=== PATIENT | female | born 1975 | race Hispanic/Latino ===

== ENCOUNTER 2018-09-01 04:00 | Emergency (ER) | payer SELFPAY ==
[2018-09-01] MEDS ORDERED: MAG HYDROX/AL HYDROX/SIMETH ES 30 ML SUSP UDCUP ONE (04:31)
[2018-09-01] MEDS ORDERED: DEXAMETHASONE SOD PHOSPHATE 10MG/ML 1ML VIAL ONE (04:31)
[2018-09-01] MEDS ORDERED: LIDOCAINE HCL 2% VISCOUS 15 ML UDCUP ONE (04:31)
[2018-09-01] MEDS ORDERED: PANTOPRAZOLE SODIUM 40 MG TABLET.DR PO ONE (04:32)
== END 2018-09-01 04:49 | disposition home or self-care (01) ==
LOC: EDH 04:00
DX: R07.0 Pain in throat (principal); Z90.49 Acquired absence of other specified parts of digestive tract
CPT/HCPCS: 96372; 99283; J1100

== ENCOUNTER 2023-04-12 12:03 | Inpatient (IN) | payer OTHER ==
[~2023-04-12] VITALS: Ht 165.1 cm; Wt 86.2 kg
[2023-04-12] MEDS ORDERED: KETOROLAC 30MG VIAL (30MG/ML) IM ONE (13:00)
[2023-04-12] MEDS ORDERED: HYDROCODONE/ACETAMINOPHEN 5/325 MG TAB PO ONE (13:00)
[2023-04-12] MEDS ORDERED: ONDANSETRON 4MG INJ IV PRN (15:30)
[2023-04-12] MEDS ORDERED: ACETAMINOPHEN 325 MG TAB PO PRN ×2 (15:30)
[2023-04-12 17:10] LABS: BASOPHILS # (AUTO) 0.03 K/uL (0.00-0.20); BASOPHILS % (AUTO) 0.3 % (0.0-5.0); EOSINOPHILS # (AUTO) 0.05 K/uL (0.00-0.70); EOSINOPHILS % (AUTO) 0.5 % (0.0-8.0); HEMATOCRIT 40.7 % (36-48); IMMATURE GRANULOCYTE ABSOLUTE 0.05 K/uL (0-1); LYMPHOCYTES # (AUTO) 2.4 K/uL (1.0-4.8); LYMPHOCYTES % (AUTO) 23.2 % (21.0-51.0); MEAN CORPUSCULAR HEMOGLOBIN 28.9 pg (27.0-33.0); MEAN CORPUSCULAR HGB CONC 33.2 g/dL (32.0-36.0); MEAN CORPUSCULAR VOLUME 87.2 fL (79-99); MONOCYTES # (AUTO) 0.5 K/uL (0.1-1.0); NEUTROPHILS # (AUTO) 7.2 K/uL (1.8-7.7); NEUTROPHILS % (AUTO) 70.5 % (40.0-77.0); PLATELET COUNT (AUTO) 293 K/uL (130-400); RED BLOOD CELL COUNT(AUTO) 4.67 MIL/uL (4.00-5.50); RED CELL DISTRIBUTION WIDTH 13.7 % (11.0-15.5); WHITE BLOOD COUNT (AUTO) 10.2 K/uL (4.8-10.8)
[2023-04-12 17:21] LABS: CREATININE 0.7 mg/dL (0.5-1.5); POTASSIUM 3.7 mmol/L (3.5-5.1)
[2023-04-12 17:22] LABS: INR < 0.93 (0.85-1.15)
[2023-04-12 17:23] LABS: PARTIAL THROMBOPLASTIN TIME 26.2 SEC (26.3-35.5)
[2023-04-12] MEDS: 0.9%NACL 1000ML 1,000 ML IV SCH (17:25)
[2023-04-12 17:26] LABS: ALBUMIN 3.6 g/dL (3.5-5.0); BILIRUBIN,TOTAL 0.4 mg/dL (0.2-1.0); TOTAL PROTEIN, SERUM 7.4 g/dL (6.0-8.3)
[2023-04-12] MEDS: MORPHINE 2 MG SYG IV PRN (20:41)
[2023-04-12 21:50] VITALS: BP 122/69; PULSE 68; RESP 16
[2023-04-12 22:15] VITALS: O2SAT 96
[2023-04-13] VITALS (7 sets, daily range): BP systolic 105–130; BP diastolic 52–71; PULSE 57–71; RESP 18–20; O2SAT 96–97
[2023-04-13] MEDS: MORPHINE 2 MG SYG IV PRN (01:43)
[2023-04-13 04:16] LABS: BASOPHILS # (AUTO) 0.03 K/uL (0.00-0.20); BASOPHILS % (AUTO) 0.3 % (0.0-5.0); EOSINOPHILS # (AUTO) 0.24 K/uL (0.00-0.70); EOSINOPHILS % (AUTO) 2.7 % (0.0-8.0); HEMATOCRIT 36.3 % (36-48); IMMATURE GRANULOCYTE ABSOLUTE 0.02 K/uL (0-1); LYMPHOCYTES % (AUTO) 34.6 % (21.0-51.0); MEAN CORPUSCULAR HEMOGLOBIN 28.5 pg (27.0-33.0); MEAN CORPUSCULAR HGB CONC 32.5 g/dL (32.0-36.0); MEAN CORPUSCULAR VOLUME 87.7 fL (79-99); MONOCYTES # (AUTO) 0.7 K/uL (0.1-1.0); MONOCYTES % (AUTO) 8.1 % (3.0-13.0); NEUTROPHILS # (AUTO) 4.7 K/uL (1.8-7.7); NEUTROPHILS % (AUTO) 54.1 % (40.0-77.0); PLATELET COUNT (AUTO) 264 K/uL (130-400); RED BLOOD CELL COUNT(AUTO) 4.14 MIL/uL (4.00-5.50); WHITE BLOOD COUNT (AUTO) 8.8 K/uL (4.8-10.8)
[2023-04-13 04:36] LABS: ALBUMIN 2.8 g/dL (3.5-5.0); BILIRUBIN,TOTAL 0.4 mg/dL (0.2-1.0); CREATININE 0.8 mg/dL (0.5-1.5); TOTAL PROTEIN, SERUM 5.9 g/dL (6.0-8.3)
[2023-04-13] MEDS: 0.9%NACL 1000ML 1,000 ML IV SCH ×2 (05:29→20:13)
[2023-04-13] MEDS: HYDROMORPHONE 0.5 MG SYG (0.5MG/0.5ML) IVP PRN ×3 (08:51→21:37)
[2023-04-13] MEDS: FAMOTIDINE 20MG VIAL IV SCH (20:02)
[2023-04-14] VITALS: BP 128/71; PULSE 62; RESP 19
[2023-04-14 03:41] LABS: HEMATOCRIT 36.9 % (36-48); MEAN CORPUSCULAR HEMOGLOBIN 29.3 pg (27.0-33.0); MEAN CORPUSCULAR HGB CONC 32.5 g/dL (32.0-36.0); RED BLOOD CELL COUNT(AUTO) 4.1 MIL/uL (4.00-5.50); RED CELL DISTRIBUTION WIDTH 13.9 % (11.0-15.5); WHITE BLOOD COUNT (AUTO) 7.8 K/uL (4.8-10.8)
[2023-04-14 03:49] LABS: CREATININE 0.9 mg/dL (0.5-1.5); POTASSIUM 4.5 mmol/L (3.5-5.1)
[2023-04-14 04:00] VITALS: BP 132/75; PULSE 50; RESP 18
[2023-04-14] MEDS: HYDROMORPHONE 0.5 MG SYG (0.5MG/0.5ML) IVP PRN (04:24)
[2023-04-14 08:00] VITALS: BP 127/78; PULSE 63; RESP 18; O2SAT 97
[2023-04-14] MEDS: FAMOTIDINE 20MG VIAL IV SCH (08:51)
[2023-04-14] MEDS: 0.9%NACL 1000ML 1,000 ML IV SCH (08:56)
[2023-04-14] MEDS: MORPHINE 2 MG SYG IV PRN (10:19)
[2023-04-14 12:00] VITALS: BP 121/74; PULSE 58; RESP 16
== END 2023-04-14 14:30 | disposition home or self-care (01) | DRG 563 ==
LOC: EDH 12:03 → EDHIP 12:04 → 4AH 21:50
PROVIDERS: ADMIT Hospitalist; ATTEND Hospitalist
DX: S82.831A Other fracture of upper and lower end of right fibula, initial encounter for closed fracture (principal); S82.832A Other fracture of upper and lower end of left fibula, initial encounter for closed fracture; W17.89XA Other fall from one level to another, initial encounter; E66.09 Other obesity due to excess calories; Z68.31 Body mass index [BMI] 31.0-31.9, adult; Y93.89 Activity, other specified; Y92.89 Other specified places as the place of occurrence of the external cause; Y99.8 Other external cause status
CPT/HCPCS: 36415; 72190; 73590; 73630; 80048; 80053; 85025; 85027; 85610; 85730; 99291; G0378; J1170; J1885; J2270; J2405; J3490; G8980-CI; G8983-CI